=== PATIENT | female | born 1970 | race Caucasian/White ===

== ENCOUNTER 2016-07-06 20:23 | Emergency (ER) | payer MEDICARE, OTHER ==
[~2016-07-06 20:23] MED LIST: CALCIUM500 MG PO; CALMOSEPTINE OI71 GM TOP; CLARITIN10 MG PO; COLACE 100MG C100 MG PO; DITROPAN 5 MG TA5 MG PO; IBUPROFEN600 MG PO; KLONOPIN TAB 00.5 MG PO; LIORESAL TAB 1010 MG PO; LIPITOR TAB 1010 MG PO; LUVOX TAB 100100 MG PO; MULTI-VITAMIN1 EACH PO; MYSOLINE50 MG PO; OLANZAPINE20 MG PO; PATADAY2.5 ML OP; PROTONIX40 MG PO; REMERON45 MG PO; SENOKOT8.6 MG PO; SYNTHROID100 MCG PO; TRAZODONE HCL100 MG PO; TYLENOL 325MG325 MG PO; ULTRAM50 MG PO; VITAMIN B-1000 MCG/M IM; VITAMIN C 250250 MG PO; XARELTO15 MG PO; ZOFRAN 4 MG TAB4 MG PO
[2016-07-06 22:08] LABS: HEMOGLOBIN 12.2 gm/dl (12.3-15.3); RED BLOOD COUNT 3.98 M/UL (4.00-5.10); WHITE BLOOD COUNT 4.5 K/UL (4.5-11.0)
[2016-07-06 22:25] LABS: BUN/CREATININE RATIO 19 (0-10)
== END 2016-07-07 01:54 | disposition home or self-care (01) ==
LOC: ER1 20:23
PROVIDERS: Emergency Medicine
DX: R07.89 Other chest pain (principal); G80.9 Cerebral palsy, unspecified; I82.409 Acute embolism and thrombosis of unspecified deep veins of unspecified lower extremity; R62.50 Unspecified lack of expected normal physiological development in childhood; Z88.5 Allergy status to narcotic agent; Z79.01 Long term (current) use of anticoagulants
CPT/HCPCS: 36415; 70450; 71010; 80053; 82550; 82553; 83690; 83874; 84484; 84703; 85025; 85379; 85610; 85730; 93005; 99285

== ENCOUNTER 2016-09-22 11:04 | Emergency (ER) | payer MEDICARE, OTHER ==
[2016-09-22 12:01] LABS: HEMOGLOBIN 11.8 gm/dl (12.3-15.3); RED BLOOD COUNT 3.94 M/UL (4.00-5.10); WHITE BLOOD COUNT 3.4 K/UL (4.5-11.0)
== END 2016-09-22 16:35 | disposition home or self-care (01) ==
LOC: ER1 11:04
PROVIDERS: Physician Assistant
DX: J20.9 Acute bronchitis, unspecified (principal); I10 Essential (primary) hypertension; Z88.5 Allergy status to narcotic agent; Z86.718 Personal history of other venous thrombosis and embolism; Z86.711 Personal history of pulmonary embolism
CPT/HCPCS: 36415; 71010; 80053; 83605; 84703; 85025; 87040; 94640; 94664; 96374; 99284; J2930

== ENCOUNTER → 2021-04-11 | Outpatient (CLI) | payer MEDICARE, OTHER | LOC: MAMO 02-22 09:00 | DX: Z12.31 Encounter for screening mammogram for malignant neoplasm of breast (principal) | CPT/HCPCS: 77063; 77067 ==